=== PATIENT | male | born 1935 | race Caucasian/White ===

== ENCOUNTER 2019-08-13 17:42 | Inpatient (IN) ==
[2019-08-13] MEDS ORDERED: IOPAMIDOL 100 ML BOTTLE IV ONE (17:43)
[2019-08-13] MEDS ORDERED: LACTATED RINGERS 1,000 ML IV ONE (18:03)
--- NOTE | 2019-08-13 18:09 | Emergency Department Note ---
Fever HPI - General Chief Complaint: Fever Stated Complaint: hypoxia Time Seen by Provider: 08/13/19 17:45 Source: EMS Mode of arrival: EMS Limitations: other - History of Present Illness HPI Narrative: This 84-year-old male comes from [facility] with reported history of being in the 7080% range oximetry and fever and shortness of breath. This is been recently noted at [facility]. EMS found him to be 77% or thereabouts and a temperature of 100.4. He is transported to the emergency room for evaluation of this. In the emergency room he has required up to 8 L via nasal cannula to help with his oximetries achieve 97%. His daughter Rosalie was contacted by nursing staff and she does want to have infections treated. She apparently is the power of [place] attorney for him. He has significant enough dementia and disability of function that he cannot respond reliably or appropriately. REVIEW OF SYSTEMS: Completely unobtainable due to nonverbal noncooperative patient. - Related Data Home Medications Medication Instructions Recorded Confirmed Calcium Carbonate/Vitamin D3 1 tablet PO BID 12/31/15 08/13/19 [Calcium 600 + Vit D Tablet] Carbidopa/Levodopa [Sinemet 25-100 1 each PO TID 12/31/15 08/13/19 mg Tablet] Citalopram [Celexa] 30 mg PO DAILY 12/31/15 08/13/19 Divalproex Sodium [Depakote ER] 250 mg PO DAILY 12/31/15 08/13/19 Divalproex Sodium [Depakote ER] 500 mg PO HS 12/31/15 12/31/15 Docusate Sodium [Colace] 100 mg PO DAILY 12/31/15 08/13/19 Erythromycin Ophth Oint [Ilotycin 1 ribbon OD TID 12/31/15 12/31/15 Ophth Oint] Gabapentin [Neurontin] 100 mg PO TID 12/31/15 12/31/15 HYDROcodone/APAP 10/325MG [[place] 1 tab PO Q6H PRN 12/31/15 08/13/19 10-325Mg] Hydrochlorothiazide 25 mg PO QAM 12/31/15 12/31/15 LORazepam [Ativan] 0.5 mg PO BIDP PRN 12/31/15 12/31/15 Metoprolol Tartrate [Lopressor] 25 mg PO BID 12/31/15 08/13/19 Multivitamin [Multi-Day Vitamins] 1 each PO DAILY 12/31/15 08/13/19 Simvastatin [Zocor] 20 mg PO HS 12/31/15 12/31/15 metFORMIN [Glucophage] 500 mg PO BIDCC 12/31/15 08/13/19 Ketoconazole 2% Top Crm [Nizoral 1 dose TOPICAL DAILY 08/13/19 08/13/19 2% Top Crm] Polyethylene Glycol 3350 [Miralax] 17 gm PO BID 08/13/19 08/13/19 rOPINIRole [Requip] 0.25 mg PO TID 08/13/19 08/13/19 Previous Rx's Medication Instructions Recorded Ipratropium/Albuterol Sulfate 2 puff INH QIDP PRN 30 Days 01/02/16 [Combivent] inhaler predniSONE [Prednisone] 20 mg PO QAMCC #5 tablet 01/02/16 Allergies Allergy/AdvReac Type Severity Reaction Status Date / Time Sulfa (Sulfonamide Allergy Unknown Unknown Verified 08/13/19 17:48 Antibiotics) Fever PMH - Past Medical History [facility] Narrative: Medical History (Last Updated 08/13/19 @ 18:29 by Eloy Lopez DO) Dementia with behavioral disturbance (Chronic) Diabetes mellitus, type 2 (Chronic) Hypertension, essential (Chronic) Chronic pain (Chronic) Hypercholesterolemia (Chronic) History of aspiration pneumonia (Chronic) Generalized anxiety disorder (Chronic) Diabetic retinopathy (Chronic) Seborrheic dermatitis (Chronic) Constipation, chronic (Chronic) Major depression, recurrent, chronic (Chronic) Dry eye syndrome (Chronic) Parkinsons (Chronic) Dementia (Chronic) Abscess of skin or subcutaneous tissue (Resolved) Aspiration pneumonia (Resolved) Cellulitis (Resolved) Fall (Resolved) UTI (urinary tract infection) (Resolved) Medical history: Reports: dementia, DM, valvular heart disease, other Psychiatric history: Reports: no psych history Family history: Reports: unable to obtain - Social History smoking status: Former smoker Alcohol use: Reports: None Drug use: Reports: none Physical Exam Limitations: altered mental status, physical limitation General appearance: in no apparent distress, lethargic, malaise, obtunded, sleepy Head: atraumatic, normocephalic Eye: Present: EOMI ENT: Present: mucous membranes dry Neck: Present: trachea midline. Absent: lymphadenopathy, thyromegaly Chest: Present: symmetric chest wall rise Respiratory: Present: normal lung sounds bilaterally. Absent: respiratory distress, wheezes, stridor, accessory muscle use, prolonged expiratory phase Cardiovascular: Present: regular rate, normal rhythm. Absent: systolic murmur, diastolic murmur Abdominal: Present: soft. Absent: distention, tenderness, guarding, rebound, rigidity, organomegaly, mass Extremities: Absent: pedal edema, pretibial edema, calf tenderness Psychiatric: Present: flat affect, serious, poor eye contact. Absent: depressed, agitated, anxious Skin: Present: cool, dry, other (Moderate seborrheic patches of pink dry flaky skin on the face mostly around the nasolabial and eyebrow areas.) Course Vital Signs Temperature 100.9 F H 08/13/19 17:43 Pulse Rate 71 08/13/19 17:43 Respiratory Rate 30 H 08/13/19 17:43 Blood Pressure 93/82 08/13/19 17:43 Pulse Oximetry (%) 95 08/13/19 17:43 Temperature 100.9 F H 08/13/19 22:59 Pulse Rate 95 H 08/13/19 22:59 Respiratory Rate 36 H 08/13/19 19:46 Blood Pressure 94/68 08/13/19 22:46 Pulse Oximetry (%) 90 08/13/19 22:59 Fever - MDM Narrative Medical decision making narrative: 5:50 PM - hypoxic, febrile, hypotensive patient coming from [facility] with a background history of dementia and DNR on a POLST form coming from [facility] but not signed by patient or POA. EKG demonstrates LVH with minor repolarization abdomen 6:15 PM - I spoke personally with patient's daughter Rosalie, who had arrived, who clarifies that she does want to be aggressive in finding and treating infections. He is not to be resuscitated with intubation/ventilator or with CPR but she would support use of vasopressors if needed. His blood pressure has been variable between as low as 93 systolic and up to 125 but bouncing around some. His respiratory rate is continuing to be around 30 breaths/min. 7:30 PM - patient had recent episode of emesis. He was laying fairly flat on his back and did some gurgling. Concern regarding aspiration. Saturations remained fairly well. He was able to be suctioned and improved. Initial chest x-ray results: 1. Possible right midlung nodule 2. No focal pulmonary parenchymal consolidation. Prominent interstitial markings bilaterally Since he is already on antibiotics, being treated for sepsis, etc., repeating the chest x-ray does not necessarily change or guide new or additional treatment. Additional chest x-rays can be done or the following day to monitor and/or further diagnosis of aspiration has occurred. 7:25 PM approximately - additional information from daughter includes that tenzin das is primarily bedridden and has "forgotten to walk" with his Parkinson's and severity thereof. Being on the Parkinson medicine and this diagnosis did seem to be helpful somewhat for him. He is only intermittently and occasionally verbal and interactive. At times is quite aggressive or irritable or belligerent. He also has rather significant "sundowning" and sleep medicines have not been helpful. She is uncertain as to why he is on gabapentin and divalproex. She also reports that he was never diagnosed with diabetes that she is aware of although it has been in his chart. 7:55 PM - white count is normal at 5.9. Platelet count mildly low at 104 and this is relatively new. He has a mild microcytosis which has been intermittent also. Other labs pending. 8:27 PM - spoke with Dr. Worthington, hospitalist. And that we do not have a source that is certain for his fever will go ahead with CT scan of the abdomen and pelvis and chest with contrast. Possibility of aspiration approximately 60 minutes ago when he vomited while supine with some gurgling following. He has a past history of aspiration pneumonia. Discussing this with hospitalist and seems reasonable to go ahead with a CT scan of the chest. 10:45 PM - CT scan results of chest abdomen and pelvis can finally come back with only significant major finding of probable aspiration pneumonia. These results were taken by staff to hospitalist who now will be admitting patient. - Lab Data Lab results reviewed: Yes I reviewed the patient's lab results. Result diagrams: 08/13/19 18:37 08/13/19 18:37 Lab Results 08/13/19 08/13/19 08/13/19 Range/Units 18:14 18:37 18:37 WBC 5.9 (4.5-11.0) K/mcL RBC 4.11 L (4.50-5.90) M/mcL Hgb 13.8 (13.5-16.5) g/dL Hct 41.2 (41.0-55.0) % MCV 100.1 H (80.0-100.0) fL MCH 33.6 (26.0-34.0) pg MCHC 33.5 (31.0-36.0) g/dL RDW 14.6 H (11.5-14.5) % Plt Count 108 L (140-440) K/mcL MPV 10.2 (7.4-10.4) fL Gran % 88.2 H (38.0-78.0) % Lymph % (Auto) 6.7 L (15.5-49.0) % [place] % (Auto) 4.2 (1.0-12.0) % Eos % (Auto) 0.9 (0.0-7.0) % Baso % (Auto) 0 (0.0-2.0) % Gran # 5.2 (1.8-8.0) K/mcL Lymph # (Auto) 0.4 L (1.5-4.8) K/mcL [place] # (Auto) 0.3 (0.1-0.9) K/mcL Eos # (Auto) 0.1 (0.0-0.7) K/mcL Baso # (Auto) 0 (0.0-0.3) K/mcL Total Counted Seg Neutrophils % (38-78) % Band Neutrophils % (0-10) % Lymphocytes % (15-49) % Monocytes % (Manual) (1-12) % Platelet Estimate (NORMAL) RBC Morphology (NORMAL) Macrocytosis (NONE SEEN) VBG Lactic Acid 3.5 H (0.5-2.0) mmol/L Sodium (133-145) mmol/L Potassium (3.3-5.1) mmol/L Chloride (96-108) mmol/L Carbon Dioxide (22-30) mmol/L Anion Gap (8-16) BUN (8-23) mg/dl Creatinine (0.7-1.2) mg/dl GFR Calculation Glucose (70-105) mg/dL Calcium (8.6-10.4) mg/dl Total Bilirubin (0.0-1.0) mg/dL AST (0-37) U/l ALT (0-40) U/l Alkaline Phosphatase (39-117) U/L Total Protein (5.9-8.4) gm/dL Albumin (3.2-5.2) gm/dL Globulin (2.2-3.7) gm/dL Albumin/Globulin Ratio (1.0-2.3) Procalcitonin 0.17 (<0.10) ng/mL Urine Color Urine Appearance Urine pH (5.0-9.0) Ur Specific [place] (1.000-1.035) Urine Protein (NEG) mg/dL Urine Glucose (UA) (NEG) mg/dL Urine Ketones (NEG) mg/dL Urine Occult Blood (<0.03) mg/dL Urine Nitrate (NEG) Urine Bilirubin (NEG) mg/dL Urine Urobilinogen (NEG) mg/dL Ur Leukocyte Esterase (NEG) /uL Urine RBC (0-1) /hpf Urine WBC (0-4) /hpf Ur Squamous Epith Cells (0-4) /hpf Urine Bacteria (0) /hpf Hyaline Casts (0-2) /lpf Urine Mucus (0) /hpf 08/13/19 08/13/19 08/13/19 Range/Units 18:37 19:06 19:27 WBC (4.5-11.0) K/mcL RBC (4.50-5.90) M/mcL Hgb (13.5-16.5) g/dL Hct (41.0-55.0) % MCV (80.0-100.0) fL MCH (26.0-34.0) pg MCHC (31.0-36.0) g/dL RDW (11.5-14.5) % Plt Count (140-440) K/mcL MPV (7.4-10.4) fL Gran % (38.0-78.0) % Lymph % (Auto) (15.5-49.0) % [place] % (Auto) (1.0-12.0) % Eos % (Auto) (0.0-7.0) % Baso % (Auto) (0.0-2.0) % Gran # (1.8-8.0) K/mcL Lymph # (Auto) (1.5-4.8) K/mcL [place] # (Auto) (0.1-0.9) K/mcL Eos # (Auto) (0.0-0.7) K/mcL Baso # (Auto) (0.0-0.3) K/mcL Total Counted 100 Seg Neutrophils % 77 (38-78) % Band Neutrophils % 8 (0-10) % Lymphocytes % 8 L (15-49) % Monocytes % (Manual) 7 (1-12) % Platelet Estimate Decreased A (NORMAL) RBC Morphology Abnorm A (NORMAL) Macrocytosis 1+ A (NONE SEEN) VBG Lactic Acid (0.5-2.0) mmol/L Sodium 141 (133-145) mmol/L Potassium 4.6 (3.3-5.1) mmol/L Chloride 102 (96-108) mmol/L Carbon Dioxide 25 (22-30) mmol/L Anion Gap 14.0 (8-16) BUN 24 H (8-23) mg/dl Creatinine 0.7 (0.7-1.2) mg/dl GFR Calculation 87 Glucose 142 H (70-105) mg/dL Calcium 8.8 (8.6-10.4) mg/dl Total Bilirubin 0.4 (0.0-1.0) mg/dL AST 40 H (0-37) U/l ALT 13 (0-40) U/l Alkaline Phosphatase 49 (39-117) U/L Total Protein 6.8 (5.9-8.4) gm/dL Albumin 3.7 (3.2-5.2) gm/dL Globulin 3.1 (2.2-3.7) gm/dL Albumin/Globulin Ratio 1.2 (1.0-2.3) Procalcitonin (<0.10) ng/mL Urine Color Yellow Urine Appearance Clear Urine pH 5.0 (5.0-9.0) Ur Specific [place] 1.032 (1.000-1.035) Urine Protein Neg (NEG) mg/dL Urine Glucose (UA) Negative (NEG) mg/dL Urine Ketones 20 A (NEG) mg/dL Urine Occult Blood Neg (<0.03) mg/dL Urine Nitrate Neg (NEG) Urine Bilirubin Neg (NEG) mg/dL Urine Urobilinogen Neg (NEG) mg/dL Ur Leukocyte Esterase Neg (NEG) /uL Urine RBC 0 (0-1) /hpf Urine WBC 3 (0-4) /hpf Ur Squamous Epith Cells 0 (0-4) /hpf Urine Bacteria 0 (0) /hpf Hyaline Casts 2 (0-2) /lpf Urine Mucus Mod (0) /hpf - Radiology Data Radiology results reviewed: Yes I reviewed the patient's radiology results. - EKG Data EKG attestation: Yes There are no EKG findings of acute coronary syndrome, Yes This EKG will be read by sampler first Disposition Pt seen by DRYING ROOM ATTENDANT/PA only: No Clinical Impression: Hypoxia, SIRS (systemic inflammatory response syndrome), Thrombocytopenia Fever Qualifiers: Fever type: unspecified Qualified Code(s): R50.9 - Fever, unspecified Hypotension Qualifiers: Hypotension type: other hypotension type Qualified Code(s): I95.89 - Other hypotension Sepsis Qualifiers: Sepsis type: sepsis due to unspecified organism Sepsis acute organ dysfunction status: without acute organ dysfunction Qualified Code(s): A41.9 - Sepsis, unspecified organism Pneumonia Qualifiers: Pneumonia type: aspiration pneumonia Aspiration pneumonia type: unspecified Laterality: bilateral Lung location: lower lobe of lung Qualified Code(s): J69.0 - Pneumonitis due to inhalation of food and vomit Disposition: Xfer As Inpt ([facility]) Condition: Fair
[2019-08-13] MEDS ORDERED: LEVOFLOXACIN 750 MG/150 ML BAG IV ONE (18:21)
[2019-08-13] MEDS ORDERED: VANCOMYCIN 1,000 MG in 0.9 % SODIUM CHLORIDE 250 ML IV ONE (18:22)
[2019-08-13] MEDS ORDERED: ACETAMINOPHEN 650 MG SUPP.RECT PR ONE (18:24)
[2019-08-13] MEDS ORDERED: 0.9 % SODIUM CHLORIDE 1,000 ML IV ONE (18:45)
[2019-08-13] MEDS ORDERED: ONDANSETRON 4 MG/2 ML VIAL IV ONE (19:18)
--- NOTE | 2019-08-13 19:28 | XRay Report ---
INDICATION: Fever TECHNIQUE: AP chest x-ray,portable semiupright COMPARISON: Previous chest x-ray dated 07/29/2017 FINDINGS:Somewhat suboptimal inspiration. Interstitial markings are prominent bilaterally. This may be secondary to inspiratory effort. There may be a focal right midlung nodule. Follow-up chest CT scan is recommended. Heart size is within normal limits. No pulmonary edema. No evidence for pleural effusion. IMPRESSION: 1. Possible right midlung nodule 2. No focal pulmonary parenchymal consolidation. Prominent interstitial markings bilaterally Interpreted and Authenticated by: Chase Aj 08/13/19
--- NOTE | 2019-08-13 19:35 | XRay Report ---
INDICATION: Possible aspiration TECHNIQUE: AP chest x-ray,portable upright COMPARISON: Previous examination dated 08/13/2019. FINDINGS:Previously described possible right midlung nodule is no longer identified and is considered artifactual. Mild bibasilar infiltrates are present. This may be due to suboptimal inspiration. Mild bibasilar pneumonia is possible. No alveolar consolidation. Continued follow-up chest x-rays recommended. Heart size and vascularity are normal. No pulmonary edema. No pulmonary congestion. IMPRESSION: 1. No pulmonary parenchymal nodule identified. Appearance on prior examination considered artifactual 2. Mild bibasilar infiltrates. Pneumonia is possible. Interpreted and Authenticated by: Chase Aj 08/13/19
[2019-08-13 19:40] LABS: Basophils # (Auto) 0 K/mcL (0.0-0.3); Basophils % (Auto) 0 % (0.0-2.0); Eosinophils # (Auto) 0.1 K/mcL (0.0-0.7); Eosinophils % (Auto) 0.9 % (0.0-7.0); Granulocytes % (Auto) 88.2 % (38.0-78.0); Hematocrit 41.2 % (41.0-55.0); Hemoglobin 13.8 g/dL (13.5-16.5); Lymphocytes # (Auto) 0.4 K/mcL (1.5-4.8); Lymphocytes % (Auto) 6.7 % (15.5-49.0); Mean Cell Volume 100.1 fL (80.0-100.0); Mean Corpuscular HGB Conc 33.5 g/dL (31.0-36.0); Mean Platelet Volume 10.2 fL (7.4-10.4); Monocytes # (Auto) 0.3 K/mcL (0.1-0.9); Monocytes % (Auto) 4.2 % (1.0-12.0); Platelet Count 108 K/mcL (140-440); RBC 4.11 M/mcL (4.50-5.90); Red Cell Distribution Width 14.6 % (11.5-14.5); WBC 5.9 K/mcL (4.5-11.0)
[2019-08-13 19:59] LABS: Appearance,Urine CLEAR; Bacteria,Urine 0 /hpf (0); Bilirubin,Urine NEG (NEG); Color,Urine YELLOW; Glucose,Urine (UA) NEGATIVE (NEG); Ketones,Urine 20 mg/dL (NEG); Leukocyte Esterase,Urine NEG /uL (NEG); Mucus,Urine MOD /hpf (0); Nitrate,Urine NEG (NEG); Protein,Urine NEG (NEG); Specific Gravity,Urine 1.032 (1.000-1.035); Urine Blood NEG mg/dL (<0.03); Urine Hyaline Cast 2 /lpf (0-2); Urine RBC 0 /hpf (0-1); Urine Squamous Epithelial Cell 0 /hpf (0-4); Urine WBC 3 /hpf (0-4); Urobilinogen,Urine NEG (NEG)
[2019-08-13 20:08] LABS: ALT/SGPT 13 U/l (0-40); AST/SGOT 40 U/l (0-37); Albumin 3.7 gm/dL (3.2-5.2); Albumin/Globulin Ratio 1.2 (1.0-2.3); Alkaline Phosphatase 49 U/L (39-117); Bilirubin,Total 0.4 mg/dL (0.0-1.0); Blood Urea Nitrogen 24 mg/dl (8-23); Calcium 8.8 mg/dl (8.6-10.4); Carbon Dioxide 25 mmol/L (22-30); Chloride 102 mmol/L (96-108); Globulin 3.1 gm/dL (2.2-3.7); Glomerular Filtration Rate 87; Glucose 142 mg/dL (70-105)
--- NOTE | 2019-08-13 21:33 | Internal Med History&Physical ---
Medical - H&P: [facility] Patient information: Note initiated : 08/13/19 at 9:31 pm Service Date, if different from initiated Date: [] Patient: Osbaldo Damon 84 y/o M admitted on for hypoxia. Chief Complaint: [] History of present illness: Mr. Damon is a 84 year old M Presents the ED from long-term facility after found to be short of breath and hypoxic. Per EMS he was 70 on room air with a temperature of 100.9. Is initially requiring 8 L of oxygen. Which is eventually dropped down to 4 L to keep mid 90s. History is obtained from family chart as patient has advanced dementia and unable to give any history. 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 No reports of change in his chronic cough. No report of him appear to be in pain anywhere. The ED is found to be febrile as well as blood pressures are running low 90s with one dropping in the 80s up to the low 100s. Had an elevated lactate and he was tachypneic and tachycardic. Chest x-ray read as mild bibasilar infiltrates but no focal consolidation or obvious pneumonia findings. Procalcitonin was low and he has a normal white blood cell count. Lactate was elevated and urine was unremarkable Review of Systems: Unable to obtain given patient's chronic state Medical - H&P: [facility] Medical history: Medical History (Last Updated 08/13/19 @ 18:29 by Eloy Lopez DO) Dementia with behavioral disturbance (Chronic) Diabetes mellitus, type 2 (Chronic) Hypertension, essential (Chronic) Chronic pain (Chronic) Hypercholesterolemia (Chronic) History of aspiration pneumonia (Chronic) Generalized anxiety disorder (Chronic) Diabetic retinopathy (Chronic) Seborrheic dermatitis (Chronic) Constipation, chronic (Chronic) Major depression, recurrent, chronic (Chronic) Dry eye syndrome (Chronic) Parkinsons (Chronic) Dementia (Chronic) Abscess of skin or subcutaneous tissue (Resolved) Aspiration pneumonia (Resolved) Cellulitis (Resolved) Fall (Resolved) UTI (urinary tract infection) (Resolved) Past surgical history: Left eye surgery Family history: father with heart dz Social History: Former smoker No alcohol use Essentially bedridden Lives in a long-term facility Medical - H&P: Meds Home Medications Medication Instructions Recorded Confirmed Type Calcium Carbonate/Vitamin D3 1 tablet PO BID 12/31/15 08/13/19 History [Calcium 600 + Vit D Tablet] Carbidopa/Levodopa [Sinemet 25-100 1 each PO TID 12/31/15 08/13/19 History mg Tablet] Citalopram [Celexa] 30 mg PO DAILY 12/31/15 08/13/19 History Divalproex Sodium [Depakote ER] 250 mg PO DAILY 12/31/15 08/13/19 History Divalproex Sodium [Depakote ER] 500 mg PO HS 12/31/15 12/31/15 History Docusate Sodium [Colace] 100 mg PO DAILY 12/31/15 08/13/19 History Erythromycin Ophth Oint [Ilotycin 1 ribbon OD TID 12/31/15 12/31/15 History Ophth Oint] Gabapentin [Neurontin] 100 mg PO TID 12/31/15 12/31/15 History HYDROcodone/APAP 10/325MG [[place] 1 tab PO Q6H PRN 12/31/15 08/13/19 History 10-325Mg] Hydrochlorothiazide 25 mg PO QAM 12/31/15 12/31/15 History LORazepam [Ativan] 0.5 mg PO BIDP PRN 12/31/15 12/31/15 History Metoprolol Tartrate [Lopressor] 25 mg PO BID 12/31/15 08/13/19 History Multivitamin [Multi-Day Vitamins] 1 each PO DAILY 12/31/15 08/13/19 History Simvastatin [Zocor] 20 mg PO HS 12/31/15 12/31/15 History metFORMIN [Glucophage] 500 mg PO BIDCC 12/31/15 08/13/19 History Ipratropium/Albuterol Sulfate 2 puff INH QIDP PRN 30 Days 01/02/16 Rx [Combivent] inhaler predniSONE [Prednisone] 20 mg PO [facility] #5 tablet 01/02/16 Rx Ketoconazole 2% Top Crm [Nizoral 1 dose TOPICAL DAILY 08/13/19 08/13/19 History 2% Top Crm] Polyethylene Glycol 3350 [Miralax] 17 gm PO BID 08/13/19 08/13/19 History rOPINIRole [Requip] 0.25 mg PO TID 08/13/19 08/13/19 History Allergies Allergy/AdvReac Type Severity Reaction Status Date / Time Sulfa (Sulfonamide Allergy Unknown Unknown Verified 08/13/19 17:48 Antibiotics) Medical - H&P: Exam - Constitutional Vitals: Temp Pulse Resp BP Pulse Ox 101.2 F H 71 36 H 83/56 91 08/13/19 21:30 08/13/19 21:30 08/13/19 19:46 08/13/19 21:30 08/13/19 21:30 Exam: General: stuporous No acute Distress Eyes/N/T: EOMI, PEERL, DMM Head/Neck: neck supple, normocephalic atraumatic CV: RRR, No murmurs, normal s1/s2 Pulm: Clear b/l, no wheezing/rhonchi/rales Abd: soft, nontender, +BS x4 Ext: no clubbing/cyanosis/edema Neuro: stuporous, pill rolling tremors UEs, moves all extremities spontaneously, responds to touch all extremites, does not follow commands Skin: warm/dry Medical - H&P: [facility]lt - Labs CBC & Chem 7: 08/13/19 18:37 08/13/19 18:37 Labs: Short CBC 08/13/19 Range/Units 18:37 WBC 5.9 (4.5-11.0) K/mcL Hgb 13.8 (13.5-16.5) g/dL Hct 41.2 (41.0-55.0) % Plt Count 108 L (140-440) K/mcL BMP 08/13/19 18:37 Sodium 141 Potassium 4.6 Chloride 102 Carbon Dioxide 25 BUN 24 H Creatinine 0.7 Glucose 142 H Calcium 8.8 Liver Function 08/13/19 Range/Units 18:37 Total Bilirubin 0.4 (0.0-1.0) mg/dL AST 40 H (0-37) U/l ALT 13 (0-40) U/l Alkaline Phosphatase 49 (39-117) U/L Albumin 3.7 (3.2-5.2) gm/dL Urine 08/13/19 Range/Units 19:06 Urine Color Yellow Urine Appearance Clear Urine pH 5.0 (5.0-9.0) Ur Specific [place] 1.032 (1.000-1.035) Urine Protein Neg (NEG) mg/dL Urine Glucose (UA) Negative (NEG) mg/dL - Impressions CT chest abdomen pelvis showing patchy nodular parenchymal opacities consider aspiration and/or pneumonia. Moderate stool throughout the colon. 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
[2019-08-13] MEDS ORDERED: PIPERACILLIN SODIUM/TAZOBACTAM 3.375 GM in DEXTROSE 5% IN WATER 50 ML IV SCH (21:45)
[2019-08-13 21:53] LABS: Band Neutrophils % 8 % (0-10); Lymphocytes % 8 % (15-49); Macrocytosis 1+ (NONE SEEN); Monocytes % (Manual) 7 % (1-12); Platelet Estimate DECREASED (NORMAL); RBC Morphology ABNORM (NORMAL); Segmented Neutrophils % 77 % (38-78)
[2019-08-13] MEDS ORDERED: BISACODYL 10 MG SUPP.RECT PR PRN (23:21)
[2019-08-13] MEDS ORDERED: ACETAMINOPHEN 325 MG TABLET PO PRN (23:21)
[2019-08-13] MEDS ORDERED: SENNOSIDES 1 TABLET PO PRN (23:21)
[2019-08-13] MEDS ORDERED: FLEETS ADULT ENEMA PR PRN (23:21)
[2019-08-13] MEDS ORDERED: PROCHLORPERAZINE 10 MG/2 ML VIAL IV PRN (23:21)
[2019-08-13] MEDS ORDERED: BISACODYL 10 MG SUPP.RECT PR ONE ×2 (23:21→23:53)
[2019-08-13] MEDS ORDERED: ONDANSETRON 4 MG/2 ML VIAL IV PRN (23:21)
[2019-08-13] MEDS ORDERED: MAGNESIUM SULFATE 2 GM/50 ML BAG IV PRN (23:21)
[2019-08-13] MEDS ORDERED: HYDROcodone/APAP 10/325MG TABLET PO PRN (23:21)
[2019-08-13] MEDS ORDERED: POTASSIUM CHLORIDE 40 MEQ in DEXTROSE 5% IN WATER 500 ML IV PRN (23:21)
[2019-08-13] MEDS ORDERED: LACTULOSE 20 GM/30 ML ORAL.SOL PO PRN (23:21)
[2019-08-13] MEDS ORDERED: IPRATROPIUM/ALBUTEROL 3 ML AMPUL.NEB NEB PRN (23:21)
[2019-08-13] MEDS ORDERED: POLYETHYLENE GLYCOL 3350 17 GM PACKET PO ONE (23:21)
[2019-08-13] MEDS ORDERED: VANCOMYCIN PER PHARMACY IV ONE (23:21)
[2019-08-13] MEDS ORDERED: POTASSIUM CHLORIDE 20 MEQ TABLET PO PRN ×2 (23:21)
[2019-08-13] MEDS ORDERED: PROMETHAZINE 12.5 MG SUPP.RECT PR PRN (23:21)
[2019-08-13] MEDS: 0.9 % SODIUM CHLORIDE 1,000 ML IV SCH (23:26)
[2019-08-13] MEDS: PIPERACILLIN SODIUM/TAZOBACTAM 3.375 GM in DEXTROSE 5% IN WATER 50 ML IV SCH (23:27)
[2019-08-13] MEDS ORDERED: ONDANSETRON 4 MG/2 ML VIAL ONE (23:53)
[2019-08-14] MEDS: IPRATROPIUM/ALBUTEROL 3 ML AMPUL.NEB NEB SCH ×2 (00:57→07:29)
[2019-08-14] MEDS ORDERED: IPRATROPIUM/ALBUTEROL 3 ML AMPUL.NEB NEB ONE (01:00)
[2019-08-14] MEDS: ACETAMINOPHEN 650 MG/65 ML BOTTLE IV PRN ×2 (01:41→08:10)
[2019-08-14] MEDS ORDERED: ACETAMINOPHEN 1,000 MG/100 ML BOTTLE IV ONE (01:42)
[2019-08-14] MEDS ORDERED: 0.9 % SODIUM CHLORIDE 250 ML IV ONE ×2 (02:55→03:52)
[2019-08-14] MEDS ORDERED: NOREPINEPHRINE BITARTRATE 4 MG/4 ML VIAL IV ONE (03:59)
[2019-08-14] MEDS ORDERED: 0.9 % SODIUM CHLORIDE 250 ML IV SCH (04:00)
[2019-08-14] MEDS ORDERED: NOREPINEPHRINE BITARTRATE 16 MG in 0.9 % SODIUM CHLORIDE 234 ML IV SCH (04:00)
[2019-08-14] MEDS: PIPERACILLIN SODIUM/TAZOBACTAM 3.375 GM in DEXTROSE 5% IN WATER 50 ML IV SCH ×2 (05:15→11:13)
--- NOTE | 2019-08-14 05:55 | Cat Scan Report ---
CLINICAL INFORMATION: Fever. Sepsis. TECHNIQUE: Axial postcontrast enhanced images through the chest. Sagittal and coronal reformatted images. Axial MIP reformatted images. COMPARISON: Chest x-rays dated 08/13/2019. Chest CT scan dated 12/14/2016 FINDINGS: Patient was unable to suspend respiration. There are bilateral lower lobe pulmonary parenchymal infiltrates. Findings may be due to atelectasis but pneumonia is possible. Mid and upper lungs are negative. No focal parenchymal infiltrate. No consolidation. There is no discrete pulmonary parenchymal mass. There is calcification of the aortic valve. There is ascending aortic aneurysm. Cross-sectional diameter of the ascending aorta measures 5.4 cm. There is no dissection. Main pulmonary artery is not dilated. No pathologic hilar or mediastinal lymphadenopathy. No axillary or supraclavicular adenopathy. There is no significant pleural fluid. No pericardial fluid. There is mild cardiomegaly. There is severe dense coronary artery calcification. Thoracic spine is negative. No compression deformities. Sternum and ribs are negative. Examination was initially interpreted by [facility] IMPRESSION: 1. Bilateral lower lobe infiltrates are consistent with pneumonia. Aspiration pneumonia should be considered 2. Ascending aortic aneurysm. Cross-sectional diameter measures 5.4 cm. Is no aortic dissection 3. Severe coronary artery calcification 4. Mild cardiomegaly Interpreted and Authenticated by: Chase Aj 08/14/19
[2019-08-14] MEDS ORDERED: 0.9 % SODIUM CHLORIDE 10 ML SYRINGE IV SCH (06:00)
--- NOTE | 2019-08-14 06:05 | Cat Scan Report ---
CLINICAL INFORMATION: Sepsis. Fever TECHNIQUE: Axial postcontrast enhanced images through the abdomen and pelvis. Sagittal and coronal reformatted images COMPARISON: None. FINDINGS: Examination is of limited quality as this patient moved during this examination. Liver: No focal intrahepatic abnormalities. Liver contour is smooth. No evidence for cirrhosis. There is no ascites Gallbladder, biliary no calcified gallstones. No dilated bile ducts. Common bile measures 4 mm Spleen: No splenomegaly. Normal enhancement of splenic and portal veins Pancreas: Negative. No pancreatic mass. No peripancreatic abnormality. No pancreatic duct dilatation Adrenal glands: Negative Kidneys, ureters, bladder: No renal mass. No perinephric abnormality. There is no hydronephrosis. There is no hydroureter. There is a Hernández catheter in the urinary bladder. Gastrointestinal: Prominent fecal material throughout the colon suggests constipation. Small bowel is negative. No mechanical small bowel obstruction. Stomach and duodenum appear normal. Normal appendix. Lymphatics: No retroperitoneal or mesenteric pathologic adenopathy. Vascular: Dense calcification of the abdominal aorta. There is no abdominal aortic aneurysm. There is calcification at the origin of the celiac trunk and superior mesenteric artery. There is some soft plaque or thrombus in the proximal superior mesenteric artery with probable stenosis. Distal superior mesenteric artery is patent and opacifies. There is no CT evidence for small bowel ischemia Mesenteric, peritoneal: No free intraperitoneal fluid. There is no pneumoperitoneum. There is no intra-abdominal abscess Musculoskeletal: No lumbar compression fracture. There is degenerative disc disease at L4-5 and L5-S1. Sacrum is negative. Pelvis is negative. No fracture or lytic lesion. There is no hip fracture. Abdominal wall: No inguinal or anterior abdominal wall hernia. No subcutaneous abnormality Examination was initially interpreted by [facility] IMPRESSION: 1. Probable constipation 2. Severe atherosclerosis. 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 No intra-abdominal abscess. No diverticulitis or appendicitis Interpreted and Authenticated by: Chase Aj 08/14/19
[2019-08-14] MEDS ORDERED: VANCOMYCIN PER PHARMACY IV SCH (06:15)
[2019-08-14 06:38] LABS: Hematocrit 36.5 % (41.0-55.0); Hemoglobin 12.4 g/dL (13.5-16.5); Mean Corpuscular HGB Conc 33.8 g/dL (31.0-36.0); Mean Platelet Volume 10.4 fL (7.4-10.4); Platelet Count 101 K/mcL (140-440); RBC 3.65 M/mcL (4.50-5.90); WBC 8.5 K/mcL (4.5-11.0)
[2019-08-14 06:49] LABS: ALT/SGPT 18 U/l (0-40); AST/SGOT 31 U/l (0-37); Albumin 3.1 gm/dL (3.2-5.2); Albumin/Globulin Ratio 1.1 (1.0-2.3); Alkaline Phosphatase 37 U/L (39-117); Bilirubin,Direct < 0.2 mg/dL (0.0-0.3); Bilirubin,Total 0.5 mg/dL (0.0-1.0); Blood Urea Nitrogen 23 mg/dl (8-23); Carbon Dioxide 19 mmol/L (22-30); Chloride 105 mmol/L (96-108); Globulin 2.7 gm/dL (2.2-3.7); Glomerular Filtration Rate 92; Glucose 145 mg/dL (70-105); Lactate Dehydrogenase 240 U/L (94-250); Phosphorous 3.1 mg/dL (2.7-4.5); Triglycerides 86 mg/dl (<150); Uric Acid 3.8 mg/dL (2.5-8.0)
--- NOTE | 2019-08-14 07:19 | Internal Med Progress Note ---
Medical - PN: Subj Patient information: Note initiated : 08/14/19 at 7:12 am Service Date, if different from initiated Date: [] Patient: Osbaldo Damon 84 y/o M admitted on 08/13/19 for hypoxia. Chief Complaint: [] Interval history: Mr. Damon is a 84 year old M Presents the ED from senior living facility after found to be short of breath and hypoxic. Per EMS he was 70 on room air with a temperature of 100.9. Is initially requiring 8 L of oxygen. Which is eventually dropped down to 4 L to keep mid 90s. History is obtained from family chart as patient has advanced dementia and unable to give any history. 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 No reports of change in his chronic cough. No report of him appear to be in pain anywhere. The ED is found to be febrile as well as blood pressures are running low 90s with one dropping in the 80s up to the low 100s. Had an elevated lactate and he was tachypneic and tachycardic. Chest x-ray read as mild bibasilar infiltrates but no focal consolidation or obvious pneumonia findings. Procalcitonin was low and he has a normal white blood cell count. Lactate was elevated and urine was unremarkable 08/14 Patient's blood pressure dropped again last night was given several boluses and then put on vasopressors. Lactate this morning is elevated despite good monitored spo2 and good blood pressure on vasopressors. Obtaining ABG and the lactated Ringer bolus will follow-up lactate. decreased UOP. Goals of care discussion with family today. Nonverbal baseline unable to gather review of systems - Constitutional Vitals: Vital Signs Temp Pulse Resp BP Pulse Ox 99.3 F H 78 24 H 104/85 100 08/14/19 06:10 08/14/19 06:10 08/14/19 06:10 08/14/19 06:08 08/14/19 06:10 Period Temp Pulse Resp BP Sys/Villanueva Pulse Ox Last 24 Hr 98.3 F-102.9 F 32-100 14-36 63-150/49-121 79-100 Intake and Output 08/13/19 08/14/19 08/14/19 21:59 05:59 13:59 Intake Total 1800 181 Output Total 395 37 Balance 179937 Weight 81.647 kg 81.511 kg Intake & Output: Intake & Output 08/13/19 08/14/19 08/14/19 21:59 05:59 13:59 Intake Total 1800 181 Output Total 395 37 Balance 1799214 -37 Weight 81.647 kg 81.511 kg Intake: IV 1800 181 Sodium Chloride 0.9% 1,000 ml @ 1000 Wide Open IV BOLUS ONE Rx#: [id number] Lactated Ringers 1,000 ml @ 400 Wide Open IV .Q0M ONE Rx#: [id number] Levophed 16 mg In Sodium 16 Chloride 0.9% 234 ml @ 10 MCG/ MIN 9.375 mls/hr IV Q24H [facility] Rx #:[id number] Zosyn 3.375 gm In Dextrose 5% 100 in Water 50 ml @ 100 mls/hr IV Q6H [facility] Rx#:[id number] Vancomycin 1,000 mg In Sodium 250 Chloride 0.9% 250 ml @ 250 mls/ hr IV ONCE ONE Rx#:[id number] Output: Urine Catheter Amount 395 37 Other: Urine Appearance Clear Clear Uretheral (Hernández) Clear Urine Color Dark Yellow Dark Yellow Uretheral (Hernández) Dark Yellow Stool Size Moderate Stool Color Brown Stool Consistency Soft # of times incontinent of 1 Bowels Exam: General: stuporous, No acute Distress Eyes/N/T: EOMI, Head/Neck: neck supple, normocephalic atraumatic CV: RRR, No murmurs, normal s1/s2 Pulm: Clear b/l, no wheezing/rhonchi/rales Abd: soft, nontender, +BS x4 Ext: no clubbing/cyanosis/edema Neuro: advance dementia - disoriented, agitated at times, pill rolling tremors UEs, moves all extremities spontaneously, responds to touch all extremites, does not follow commands or verbalize Skin: warm/dry Medical - PN: Obj Da - Labs CBC & Chem 7: 08/14/19 04:20 08/14/19 04:20 Labs: Abnormal Lab Results 08/14/19 08/14/19 08/13/19 04:20 04:20 19:27 RBC 3.65 L Hgb 12.4 L Hct 36.5 L MCV RDW Plt Count 101 L Gran % Lymph % (Auto) Lymph # (Auto) Lymphocytes % 8 L Platelet Estimate Decreased A RBC Morphology Abnorm A Macrocytosis 1+ A VBG Lactic Acid Carbon Dioxide 19 L BUN Creatinine 0.6 L Glucose 145 H Calcium 8.0 L AST Alkaline Phosphatase 37 L Total Protein 5.8 L Albumin 3.1 L Urine Ketones 08/13/19 08/13/19 08/13/19 19:06 18:37 18:37 RBC 4.11 L Hgb Hct MCV 100.1 H RDW 14.6 H Plt Count 108 L Gran % 88.2 H Lymph % (Auto) 6.7 L Lymph # (Auto) 0.4 L Lymphocytes % Platelet Estimate RBC Morphology Macrocytosis VBG Lactic Acid Carbon Dioxide BUN 24 H Creatinine Glucose 142 H Calcium AST 40 H Alkaline Phosphatase Total Protein Albumin Urine Ketones 20 A 08/13/19 18:14 RBC Hgb Hct MCV RDW Plt Count Gran % Lymph % (Auto) Lymph # (Auto) Lymphocytes % Platelet Estimate RBC Morphology Macrocytosis VBG Lactic Acid 3.5 H Carbon Dioxide BUN Creatinine Glucose Calcium AST Alkaline Phosphatase Total Protein Albumin Urine Ketones Meds: Medications Acetaminophen (Tylenol) 650 mg PO Q6HP PRN PRN Reason: PAIN/FEVER > 101 Hydrocodone Bitart/Acetaminophen ([place] 10/325mg) 1 tab PO Q6H PRN; Protocol PRN Reason: Pain Albuterol/Ipratropium (Duoneb) 3 ml NEB Q6HRT [facility] Last Admin: 08/14/19 00:57 Dose: 3 ml Documented by: Albuterol/Ipratropium (Duoneb) 3 ml NEB Q4HP PRN PRN Reason: Shortness Of Breath Bisacodyl (Dulcolax) 10 mg ME DAILYP PRN PRN Reason: Constipation Carbidopa/Levodopa (Sinemet 25/100) tab PO TID [facility] Citalopram Hydrobromide (Celexa) 30 mg PO DAILY [facility] Divalproex Sodium (Depakote Er) 250 mg PO DAILY [facility] Docusate Sodium (Colace) 100 mg PO BID [facility] Enoxaparin Sodium (Lovenox) 40 mg SQ DAILY [facility] Famotidine (Pepcid) 20 mg IV Q12 [facility] Potassium Chloride 40 meq/ (Dextrose) 520 mls @ 130 mls/hr IV UD PRN PRN Reason: Potassium < 3 Magnesium Sulfate (Magnesium Sulfate) 2 gm in 50 mls @ 50 mls/hr IV UD PRN PRN Reason: Magnesium </= 1.6 Sodium Chloride (Sodium Chloride 0.9%) 1,000 mls @ 100 mls/hr IV .Q10H [facility] Stop: 08/14/19 19:20 Last Admin: 08/13/19 23:26 Dose: 100 mls/hr Documented by: Piperacillin Sod/Tazobactam (Sod 3.375 gm/ Dextrose) 50 mls @ 100 mls/hr IV Q6H [facility]; Protocol Last Infusion: 08/14/19 05:53 Dose: Infused Documented by: Acetaminophen (Ofirmev) 650 mg in 65 mls @ 130 mls/hr IV Q6HP PRN; Protocol PRN Reason: PAIN/FEVER > 101 Last Infusion: 08/14/19 02:12 Dose: Infused Documented by: Norepinephrine Bitartrate 16 (mg/ Sodium Chloride) 250 mls @ 9.375 mls/hr IV Q2 4H [facility]; Protocol Last Titration: 08/14/19 05:53 Dose: 10 mcg/min, 9.375 mls/hr Documented by: Sodium Chloride (Sodium Chloride 0.9%) 250 mls @ 20 mls/hr IV .[id number] [facility] Last Admin: 08/14/19 04:08 Dose: 20 mls/hr Documented by: Vancomycin HCl 1,000 mg/ (Sodium Chloride) 250 mls @ 250 mls/hr IV Q12H [facility] Lactulose (Cephulac) 10 gm PO DAILYP PRN PRN Reason: Constipation Metoprolol Tartrate (Lopressor) 25 mg PO BID [facility] Ondansetron HCl (Zofran) 4 mg IV Q4HP PRN PRN Reason: Nausea And Vomiting Last Admin: 08/13/19 23:58 Dose: 4 mg Documented by: Polyethylene Glycol (Miralax) 17 gm PO DAILY [facility] Potassium Chloride (Kdur) 40 meq PO UD PRN PRN Reason: Potssium is 3-3.5 Potassium Chloride (Kdur) 40 meq PO UD PRN PRN Reason: Potassium < 3 Prochlorperazine (Compazine) 10 mg IV Q6HP PRN PRN Reason: Nausea And Vomiting Promethazine HCl (Phenergan) 12.5 mg ME Q6HP PRN PRN Reason: Pain Ropinirole HCl (Requip) 0.25 mg PO TID [facility] Senna (Senokot) 2 tab PO HSP PRN PRN Reason: Constipation Sodium Biphosphate/Sodium Phosphate (Fleets Adult) 1 dose ME Q3DP PRN PRN Reason: Constipation Sodium Chloride (Saline Flush) 10 ml IV Q8 [facility] Last Admin: 08/14/19 05:16 Dose: 10 ml Documented by: Vancomycin HCl (Vancomycin Per Pharmacy) 1 order IV [facility]; Protocol Medical - PN: A/P - Time Spent With Patient Total time spent is greater than 50% in coordination of care (as documented) at patient's floor/unit and/or counseling patient: - Narrative A/P Narrative: A: *Acute hypoxic Resp Failure: likely from Aspiration -4L oxymask from 8L initially *aspiration PNA: *Septic Shock: -CT c/a/p showing bibasilar infiltrates, no acute abd path *Lactic acidosis: 2/2 hypoxia and sepsis *Parkinson's: *Poor functional status/debility/deconditioning: Bedridden *Dementia: *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
[2019-08-14 07:59] LABS: Band Neutrophils % 32 % (0-10); Lymphocytes % 6 % (15-49); Monocytes % (Manual) 6 % (1-12); Platelet Estimate DECREASED (NORMAL); RBC Morphology NORMAL (NORMAL); Segmented Neutrophils % 56 % (38-78)
[2019-08-14] MEDS ORDERED: LACTATED RINGERS 1,000 ML IV ONE (08:53)
[2019-08-14] MEDS ORDERED: METOPROLOL TARTRATE 50 MG TABLET PO SCH (09:00)
[2019-08-14] MEDS ORDERED: CITALOPRAM 20 MG TABLET PO SCH (09:00)
[2019-08-14] MEDS ORDERED: DOCUSATE SODIUM 100 MG CAPSULE PO SCH (09:00)
[2019-08-14] MEDS ORDERED: CARBIDOPA/LEVODOPA 25/100 TABLET PO SCH (09:00)
[2019-08-14] MEDS ORDERED: FAMOTIDINE/PF 20 MG/2 ML VIAL IV SCH (09:00)
[2019-08-14] MEDS ORDERED: DIVALPROEX SODIUM 250 MG TABLET PO SCH (09:00)
[2019-08-14] MEDS ORDERED: POLYETHYLENE GLYCOL 3350 17 GM PACKET PO SCH (09:00)
[2019-08-14] MEDS ORDERED: rOPINIRole 0.25 MG TABLET PO SCH (09:00)
[2019-08-14] MEDS ORDERED: ENOXAPARIN 40 MG/0.4 ML SYRINGE SQ SCH (09:00)
[2019-08-14] MEDS ORDERED: VANCOMYCIN 1,000 MG in 0.9 % SODIUM CHLORIDE 250 ML IV SCH (09:00)
[2019-08-14] MEDS: 0.9 % SODIUM CHLORIDE 1,000 ML IV SCH (11:12)
[2019-08-14] MEDS ORDERED: BISACODYL 10 MG SUPP.RECT PR PRN (11:15)
[2019-08-14] MEDS ORDERED: ACETAMINOPHEN 325 MG TABLET PO PRN (11:15)
[2019-08-14] MEDS ORDERED: LACTULOSE 20 GM/30 ML ORAL.SOL PO PRN (11:15)
[2019-08-14] MEDS ORDERED: ONDANSETRON 4 MG/2 ML VIAL IV PRN (11:15)
[2019-08-14] MEDS ORDERED: LACTOPEROXI/GLUC OXID/POT THIO 1 EACH GEL..EA. TOPICAL PRN (11:15)
[2019-08-14] MEDS: LORazepam 2 MG/ML VIAL IV PRN (12:47)
[2019-08-14] MEDS: 0.9 % SODIUM CHLORIDE 10 ML SYRINGE IV SCH ×2 (15:55→22:58)
[2019-08-15] MEDS: 0.9 % SODIUM CHLORIDE 10 ML SYRINGE IV SCH (05:02)
--- NOTE | 2019-08-15 07:40 | Internal Med Progress Note ---
Medical - PN: Subj Patient information: Note initiated : 08/15/19 at 7:40 am Service Date, if different from initiated Date: [] Patient: Osbaldo Damon 84 y/o M admitted on 08/13/19 for hypoxia. Chief Complaint: [] Interval history: Mr. Damon is a 84 year old M [facility] found to be short of breath and hypoxic. Per EMS he was 70 on room air with a temperature of 100.9. Is initially requiring 8 L of oxygen. Which is eventually dropped down to 4 L to keep mid 90s. History is obtained from family chart as patient has advanced dementia and unable to give any history. 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 No reports of change in his chronic cough. No report of him appear to be in pain anywhere. The ED is found to be febrile as well as blood pressures are running low 90s with one dropping in the 80s up to the low 100s. Had an elevated lactate and he was tachypneic and tachycardic. Chest x-ray read as mild bibasilar infiltrates but no focal consolidation or obvious pneumonia findings. Procalcitonin was low and he has a normal white blood cell count. Lactate was elevated and urine was unremarkable 08/14 Patient's blood pressure dropped again last night was given several boluses and then put on vasopressors. Lactate this morning is elevated despite good monitored spo2 and good blood pressure on vasopressors. Obtaining ABG and the lactated Ringer bolus will follow-up lactate. decreased UOP. Goals of care discussion with family today. Further discussions with the family as well as gearcase assembler having discussion with the family and it has been decided that the best option would be to tra nsition to comfort care only. 08/15 Sleeping but awakens to moderate touch, makes eye contact. nonverbal. Nonverbal baseline unable to gather review of systems - Constitutional Vitals: Vital Signs Temp Pulse Resp BP Pulse Ox 98.7 F 75 20 83/51 82 L 08/14/19 19:44 08/14/19 19:44 08/14/19 19:44 08/14/19 19:44 08/14/19 19:44 Period Temp Pulse Resp BP Sys/Villanueva Pulse Ox Last 24 Hr 98.7 F-100.2 F 75-76 11-23 83-128/51-77 82-100 Intake and Output 08/14/19 08/15/19 08/15/19 21:59 05:59 13:59 Intake Total 0 Output Total 133 225 Balance -133 -225 Weight 87.77 kg Intake & Output: Intake & Output 08/14/19 08/15/19 08/15/19 21:59 05:59 13:59 Intake Total 0 Output Total 133 225 Balance -133 -225 Weight 87.77 kg Intake: Oral 0 Output: Urine Catheter Amount 133 225 Other: Urine Appearance Clear Urine Color Dark Dahlia Dark Yellow Uretheral (Hernández) Dark Dahlia Urine Odor Normal Strong Stool Size Moderate Stool Color Brown Stool Consistency Soft Exam: General: drowsy, No acute Distress Eyes/N/T: EOMI, Head/Neck: neck supple, CV: RRR, No murmurs, Pulm: Clear b/l, no wheezing/rhonchi/rales Abd: soft, nontender, +BS x4 Ext: no clubbing/cyanosis/edema Neuro: drowsy but awakens with moderate touch. advance dementia - disoriented, agitated at times, pill rolling tremors UEs, Skin: warm/dry Medical - PN: Obj Da - Labs CBC & Chem 7: 08/14/19 04:20 08/14/19 04:20 Labs: Abnormal Lab Results 08/14/19 08/14/19 08/14/19 07:39 04:20 04:20 RBC 3.65 L Hgb 12.4 L Hct 36.5 L MCV RDW Plt Count 101 L Gran % Lymph % (Auto) Lymph # (Auto) Band Neutrophils % 32 H Lymphocytes % 6 L Platelet Estimate Decreased A RBC Morphology Macrocytosis VBG Lactic Acid 6.4 H* Carbon Dioxide 19 L BUN Creatinine 0.6 L Glucose 145 H Calcium 8.0 L AST Alkaline Phosphatase 37 L Total Protein 5.8 L Albumin 3.1 L Urine Ketones 08/13/19 08/13/19 08/13/19 19:27 19:06 18:37 RBC Hgb Hct MCV RDW Plt Count Gran % Lymph % (Auto) Lymph # (Auto) Band Neutrophils % Lymphocytes % 8 L Platelet Estimate Decreased A RBC Morphology Abnorm A Macrocytosis 1+ A VBG Lactic Acid Carbon Dioxide BUN 24 H Creatinine Glucose 142 H Calcium AST 40 H Alkaline Phosphatase Total Protein Albumin Urine Ketones 20 A 08/13/19 08/13/19 18:37 18:14 RBC 4.11 L Hgb Hct MCV 100.1 H RDW 14.6 H Plt Count 108 L Gran % 88.2 H Lymph % (Auto) 6.7 L Lymph # (Auto) 0.4 L Band Neutrophils % Lymphocytes % Platelet Estimate RBC Morphology Macrocytosis VBG Lactic Acid 3.5 H Carbon Dioxide BUN Creatinine Glucose Calcium AST Alkaline Phosphatase Total Protein Albumin Urine Ketones Meds: Medications Acetaminophen (Tylenol) 650 mg PO Q6HP PRN PRN Reason: PAIN/FEVER > 101 Bisacodyl (Dulcolax) 10 mg OR DAILYP PRN PRN Reason: Constipation Glucose Oxid/Lactoperoxid/Muramidas (Biotene) 1 each TOPICAL PRN PRN PRN Reason: Dry Mouth Lactulose (Cephulac) 10 gm PO DAILYP PRN PRN Reason: Constipation Lorazepam (Ativan) 0 mg IV Q1HP PRN; Protocol PRN Reason: ANXIETY/SEDATION Last Admin: 08/14/19 12:47 Dose: 2 mg Documented by: Morphine Sulfate (Morphine) 0 mg IV Q1HP PRN PRN Reason: Pain Last Admin: 08/15/19 03:52 Dose: 4 mg Documented by: Morphine Sulfate (Morphine) 4 mg NEB Q4HP PRN PRN Reason: Shortness Of Breath Ondansetron HCl (Zofran) 4 mg IV Q4HP PRN PRN Reason: Nausea And Vomiting Sodium Chloride (Saline Flush) 10 ml IV Q8 [facility] Last Admin: 08/15/19 05:02 Dose: 10 ml Documented by: Medical - PN: A/P - Time Spent With Patient Total time spent is greater than 50% in coordination of care (as documented) at patient's floor/unit and/or counseling patient: - Narrative A/P Narrative: A: *Acute hypoxic Resp Failure: likely from Aspiration *Aspiration PNA: *Septic Shock: -CT c/a/p showing bibasilar infiltrates, no acute abd path *Lactic acidosis: 2/2 hypoxia and sepsis *Parkinson's: *Poor functional status/debility/deconditioning: Bedridden *Dementia: *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
[2019-08-15] MEDS: LORazepam 2 MG/ML VIAL IV PRN (07:58)
--- NOTE | 2019-08-15 10:44 | Death Note ---
Discharge Sum: Prov - Provider Patient information: Note initiated : 08/15/19 at 10:43 am Service Date, if different from initiated Date: [] Patient: Osbaldo Damon 84 y/o M admitted on 08/13/19 for hypoxia. Chief Complaint: [] Primary care physician: Suzie Garcia Consults: 08/13/19 Consult to Physician [CONS] Stat Comment: Consulting Provider: Timmy Worthington Reason For Exam: Physician to Consult Discharge Sum: Diag - PCOD Cause of : Aspiration pneumonia Discharge Sum: Summary - Date and Time Date of admission: 08/13/19 23:04 Date of : 08/15/19 Time of : 10:40 - Summary Details: Mr. Damon is a 84 year old M Presents the ED from assisted facility after found to be short of breath and hypoxic. Per EMS he was 70 on room air with a temperature of 100.9. Is initially requiring 8 L of oxygen. Which is eventually dropped down to 4 L to keep mid 90s. History is obtained from family chart as patient has advanced dementia and unable to give any history. 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 No reports of change in his chronic cough. No report of him appear to be in pain anywhere. The ED is found to be febrile as well as blood pressures are running low 90s with one dropping in the 80s up to the low 100s. Had an elevated lactate and he was tachypneic and tachycardic. Chest x-ray read as mild bibasilar infiltrates but no focal consolidation or obvious pneumonia findings. Procalcitonin was low and he has a normal white blood cell count. Lactate was elevated and urine was unremarkable 08/14 Patient's blood pressure dropped again last night was given several boluses and then put on vasopressors. Lactate this morning is elevated despite good monitored spo2 and good blood pressure on vasopressors. Obtaining ABG and the lactated Ringer bolus will follow-up lactate. decreased UOP. Goals of care d iscussion with family today. Further discussions with the family as well as nurse case manager having discussion with the family and it has been decided that the best option would be to transition to comfort care only. 10/30 Sleeping but awakens to moderate touch, makes eye contact. nonverbal. Patient 1040. - Additional Data Attending physician: Timmy Worthington
== END 2019-08-15 10:40 | disposition expired | DRG 871 ==
LOC: ED 17:42 → ICU 23:04 → MEDSUR 08-14 13:30
PROVIDERS: ADMIT Internal Medicine; ATTEND Internal Medicine